=== PATIENT | male | born 1950 | race Caucasian/White ===

== ENCOUNTER 2017-07-21 07:38 | Outpatient (CLI) | payer OTHER ==
[~2017-07-21] VITALS: Ht 193 cm; Wt 117.0 kg
[~2017-07-21 07:38] MED LIST: AMLO-183 PO; LEVO150T7 PO; MULT1TAB28 PO; NEXI40CA PO; SILD50TA GT; SIMV20TA2 PO; TRAV04OPD OU
[2017-07-21] MEDS ORDERED: NS 1,000 ML IV ONE (08:00)
--- NOTE | 2017-07-21 09:29 | ROOR ---
Patient Name: Giovanni Mejia Procedure Date: 07/21/2017 9:02 AM Date of : 1950 Age: 67 Room: [facility] Gender: Male Note Status: Finalized Procedure: Total Colonoscopy to Cecum Indications: Screening for colorectal malignant neoplasm Providers: Alvaro Cobb MD Referring MD: EFREN FERNANDEZ JR, MD Requesting Provider: Medicines: Monitored Anesthesia Care Complications: No immediate complications. Procedure: Pre-Anesthesia Assessment: - The heart rate, respiratory rate, oxygen saturations, blood pressure, adequacy of pulmonary ventilation, and response to care were monitored throughout the procedure. The Colonoscope was introduced through the anus and advanced to the cecum, identified by appendiceal orifice and ileocecal valve. The colonoscopy was performed without difficulty. The patient tolerated the procedure well. The quality of the bowel preparation was excellent. Findings: The perianal and digital rectal examinations were normal. Non-bleeding internal hemorrhoids were found during retroflexion. The hemorrhoids were small and Grade I (internal hemorrhoids that do not prolapse). Scattered small-mouthed diverticula were found in the recto-sigmoid colon, sigmoid colon and descending colon. The exam was otherwise without abnormality on direct and retroflexion views. Impression: - Non-bleeding internal hemorrhoids. - Diverticulosis in the recto-sigmoid colon, in the sigmoid colon and in the descending colon. - The examination was otherwise normal on direct and retroflexion views. - No specimens collected. - The exam was otherwise normal to the cecum. Recommendation: - Patient has a contact number available for emergencies. The signs and symptoms of potential delayed complications were discussed with the patient. Return to normal activities tomorrow. Written discharge instructions were provided to the patient. - High fiber diet. - Discharge patient to home. - Continue present medications. - Repeat colonoscopy in 10 years for screening purposes. - Return to referring physician. - The findings and recommendations were discussed with the patient's family. Alvaro Cobb MD Alvaro Cobb MD 07/21/2017 9:28:53 AM This report has been signed electronically. Number of Addenda: 0 Note Initiated On: 07/21/2017 9:02 AM Estimated Blood Loss: Estimated blood loss: none.
[2017-07-21 09:55] VITALS: BP 149/90
== END 2017-07-21 09:56 | disposition home or self-care (01) ==
LOC: M OPP 07:38
PROVIDERS: ATTEND Internal Medicine Gastroenterology
DX: Z12.11 Encounter for screening for malignant neoplasm of colon (principal); K64.0 First degree hemorrhoids; K57.30 Diverticulosis of large intestine without perforation or abscess without bleeding; I10 Essential (primary) hypertension; E03.9 Hypothyroidism, unspecified; E78.00 Pure hypercholesterolemia, unspecified; E05.00 Thyrotoxicosis with diffuse goiter without thyrotoxic crisis or storm; K21.9 Gastro-esophageal reflux disease without esophagitis; Z92.3 Personal history of irradiation; Z87.891 Personal history of nicotine dependence; Z79.899 Other long term (current) drug therapy; Z88.6 Allergy status to analgesic agent

== ENCOUNTER → 2018-01-29 | Outpatient (REF) | payer OTHER ==
[2018-01-31 00:07] LABS: Lyme Disease IgG/IgM Antibodie <0.91 ISR (0.00-0.90); Lyme Disease IgM Ab Quantitati <0.80 index (0.00-0.79)
== END ==
LOC: M LAB REF 12:06
DX: M54.5 Low back pain (principal); M25.551 Pain in right hip; Z11.59 Encounter for screening for other viral diseases
CPT/HCPCS: 86617

== ENCOUNTER → 2020-03-24 | Outpatient (REF) | payer OTHER ==
[~2020-03-24] MED LIST changes: -SIMV20TA2 PO; +SIMV20TA22 PO
[2020-03-25 15:09] LABS: Lyme Disease IgG/IgM Antibodie <0.91 ISR (0.00-0.90); Lyme Disease IgM Ab Quantitati <0.80 index (0.00-0.79)
== END ==
LOC: M LAB REF 12:26
PROVIDERS: ATTEND Registered Nurse
DX: M25.50 Pain in unspecified joint (principal)

== ENCOUNTER → 2021-03-12 | Outpatient (CLI) | payer OTHER ==
--- NOTE | 2021-03-12 13:36 | REP ---
INDICATION: EROSIVE OSTEOARTHRITIS. COMPARISON: None. TECHNIQUE: Four views FINDINGS: The joint spaces are symmetric and relatively well maintained. There is no evidence of marginal osteophytosis or marginal erosions. There is no evidence of periarticular osteopenia. There is no evidence of acute fracture or destructive osseous lesion. IMPRESSION: Negative hand. <Electronically signed by Zan Moise > 03/12/21 [id number]
--- NOTE | 2021-03-13 09:39 | REP ---
INDICATION: EROSIVE OSTEOARTHRITIS COMPARISON: None. TECHNIQUE: AP, lateral, bilateral oblique views right wrist. FINDINGS: The carpal bones, surrounding osseous structures, soft tissues, and joint spaces are essentially normal/age-appropriate. There is no evidence for acute fracture or dislocation. No significant arthritic changes are appreciated. No periarticular calcifications or chondrocalcinosis. No subcutaneous emphysema or radiodense foreign body. IMPRESSION: Normal wrist series. No acute fracture or dislocation. <Electronically signed by Sushil Sandhu > 03/13/21 [id number]
[2021-03-14 12:09] LABS: ANTINUCLEAR ANTIBODIES DIRECT Negative (Negative)
== END ==
LOC: M WUC 13:14
PROVIDERS: ATTEND Internal Medicine
DX: M15.9 Polyosteoarthritis, unspecified (principal); M35.3 Polymyalgia rheumatica

== ENCOUNTER 2022-04-06 14:47 | Emergency (ER) | payer OTHER ==
[~2022-04-06] VITALS: Ht 193 cm; Wt 120.9 kg
[~2022-04-06 14:47] MED LIST changes: -SILD50TA GT; +SILD50TA PO
[2022-04-06] MEDS ORDERED: METF500T13 PO (14:55)
[2022-04-06] MEDS ORDERED: NS 250 ML IV ONE (15:20)
[2022-04-06] MEDS ORDERED: ROSU10TA6 PO (15:35)
[2022-04-06] MEDS ORDERED: LOTR5CAP2 PO (15:35)
[2022-04-06 15:36] LABS: BASO % 0.3 % (0.0-1.0); EOS % 0.2 % (0.0-3.0); HEMATOCRIT 41.8 % (42.0-52.0); HEMOGLOBIN 13.9 g/dl (13.5-17.5); LYMPH # 1.2 10^3/uL (1.5-5.0); LYMPH % 9.6 % (24.0-44.0); MEAN CORPUSCULAR HEMOGLOBIN 32.3 pg (27.0-33.0); MEAN CORPUSCULAR HGB CONC 33.3 g/dl (32.0-36.5); MEAN CORPUSCULAR VOLUME 97.2 fl (80.0-96.0); MONO # 0.6 10^3/uL (0.0-0.8); MONO % 4.6 % (2.0-8.0); NEUTROPHILS # 10.4 10^3/uL (1.5-8.5); NEUTROPHILS % 84.9 % (36.0-66.0); PLATELET COUNT, AUTOMATED 328 10^3/uL (150-450); WHITE BLOOD COUNT 12.2 10^3/uL (4.0-10.0)
[2022-04-06] MEDS: METOPROLOL 5 MG/5 ML VIAL IV PRN ×2 (15:40→15:46)
[2022-04-06 15:52] LABS: INR 0.88; PROTHROMBIN TIME 12.3 SECONDS (12.7-14.5)
[2022-04-06 15:53] LABS: PARTIAL THROMBOPLASTIN TIME 25.2 SECONDS (25.9-37.0)
[2022-04-06 16:02] LABS: CK-MB VALUE MASS 2.7 NG/ML (<3.6); MB/CK RELATIVE INDEX 1.16 (< OR =4)
[2022-04-06] MEDS ORDERED: METOPROLOL TART 25 MG TABLET PO ONE (16:05)
[2022-04-06] MEDS ORDERED: ISOVUE-370 76% 100ML VIAL As Ordered ONE (16:14)
[2022-04-06 16:21] LABS: ALBUMIN 4.1 GM/DL (3.2-5.2); BILIRUBIN,DIRECT 0.1 MG/DL (0.0-0.2); BILIRUBIN,TOTAL 0.4 MG/DL (0.2-1.0); CALCIUM LEVEL 9.1 MG/DL (8.8-10.2); CREATININE FOR GFR 1.49 MG/DL (0.70-1.30); FREE T4 1.08 NG/DL (0.76-1.46); GLOMERULAR FILTRATION RATE 49.5 (>42); POTASSIUM SERUM 4.7 MEQ/L (3.5-5.1); THYROID STIMULATING HORMONE 2.78 uIU/ML (0.358-3.740)
[2022-04-06 16:23] LABS: RSV AMPLIFICATION NEGATIVE (NEGATIVE)
[2022-04-06] MEDS ORDERED: MULTTAB61 PO (17:37)
[2022-04-06] MEDS ORDERED: HOME MED LIST COMPLETE! XX SCH (17:40)
[2022-04-06 17:41] LABS: CK-MB VALUE MASS 2.4 NG/ML (<3.6); MB/CK RELATIVE INDEX 1.12 (< OR =4)
[2022-04-06] MEDS ORDERED: atenoloL 25 MG TAB PO ONE (18:00)
[2022-04-06] MEDS ORDERED: APIXABAN 5 MG TAB (ELIQUIS) PO ONE (18:00)
[2022-04-06] MEDS ORDERED: ATEN25TA PO (18:02)
[2022-04-06] MEDS ORDERED: ELIQ5TAB PO (18:03)
[2022-04-06 18:15] VITALS: BP 122/62
== END 2022-04-06 18:17 | disposition home or self-care (01) ==
LOC: M ED 14:47
DX: I48.91 Unspecified atrial fibrillation (principal); R06.00 Dyspnea, unspecified; R94.31 Abnormal electrocardiogram [ECG] [EKG]; E11.9 Type 2 diabetes mellitus without complications; I10 Essential (primary) hypertension; F17.200 Nicotine dependence, unspecified, uncomplicated; F10.10 Alcohol abuse, uncomplicated; Z88.6 Allergy status to analgesic agent; Z79.4 Long term (current) use of insulin; Z79.899 Other long term (current) drug therapy
CPT/HCPCS: 70450; 71045; 71275; 80047; 80048; 80076; 82550; 82553; 83690; 83880; 84439; 84443; 84484; 85025; 85610; 85730; 86850; 86900; 86901; 87631; 93005; 93041; 94760; 96361; 96374; 99285; Q9967

== ENCOUNTER 2022-07-19 11:23 | Emergency (ER) | payer OTHER, MEDICARE ==
[~2022-07-19] VITALS: Ht 193 cm; Wt 114.4 kg
[~2022-07-19 11:23] MED LIST changes: +ATEN25TA PO; +ELIQ5TAB PO; +LOTR5CAP2 PO; +METF500T13 PO; +MULTTAB61 PO; +ROSU10TA6 PO
[2022-07-19] MEDS ORDERED: METOPROLOL 5 MG/5 ML VIAL IV SCH (11:55)
[2022-07-19] MEDS ORDERED: METO1TAB87 (11:58)
[2022-07-19] MEDS ORDERED: NS 500 ML IV ONE (12:10)
[2022-07-19 12:17] LABS: BASO % 0.4 % (0.0-1.0); EOS # 0.1 10^3/uL (0.0-0.5); EOS % 1.1 % (0.0-3.0); HEMATOCRIT 45.6 % (42.0-52.0); HEMOGLOBIN 15.4 g/dl (13.5-17.5); LYMPH # 1.6 10^3/uL (1.5-5.0); LYMPH % 17.7 % (24.0-44.0); MEAN CORPUSCULAR HEMOGLOBIN 33.1 pg (27.0-33.0); MEAN CORPUSCULAR HGB CONC 33.8 g/dl (32.0-36.5); MEAN CORPUSCULAR VOLUME 98.1 fl (80.0-96.0); MONO # 0.7 10^3/uL (0.0-0.8); MONO % 7.2 % (2.0-8.0); NEUTROPHILS # 6.8 10^3/uL (1.5-8.5); NEUTROPHILS % 73.2 % (36.0-66.0); PLATELET COUNT, AUTOMATED 320 10^3/uL (150-450); RED BLOOD COUNT 4.65 10^6/uL (4.30-6.10); WHITE BLOOD COUNT 9.3 10^3/uL (4.0-10.0)
[2022-07-19 12:43] LABS: INR 0.91; PROTHROMBIN TIME 12.6 SECONDS (12.7-14.5)
[2022-07-19 12:44] LABS: PARTIAL THROMBOPLASTIN TIME 24.4 SECONDS (25.9-37.0)
[2022-07-19 12:48] LABS: CK-MB VALUE MASS 1.3 NG/ML (<3.6); MB/CK RELATIVE INDEX 1.03 (< OR =4)
[2022-07-19 12:56] LABS: RSV AMPLIFICATION NEGATIVE (NEGATIVE)
[2022-07-19 12:59] LABS: ALBUMIN 3.9 GM/DL (3.2-5.2); ALT/SGPT 35 U/L (12-78); BILIRUBIN,DIRECT 0.1 MG/DL (0.0-0.2); BILIRUBIN,TOTAL 0.4 MG/DL (0.2-1.0); BLOOD UREA NITROGEN 20 MG/DL (7-18); CARBON DIOXIDE LEVEL 29 MEQ/L (21-32); CHLORIDE LEVEL 105 MEQ/L (98-107); CREATININE FOR GFR 1.16 MG/DL (0.70-1.30); FREE T4 1.02 NG/DL (0.76-1.46); GLOMERULAR FILTRATION RATE > 60.0 (>42); GLUCOSE, FASTING 171 MG/DL (70-100); LIPASE 58 U/L (73-393); NT-PRO BNP 892 PG/ML (<125); POTASSIUM SERUM 4.7 MEQ/L (3.5-5.1); SODIUM LEVEL 140 MEQ/L (136-145)
[2022-07-19 14:08] LABS: CK-MB VALUE MASS < 1.0 NG/ML (<3.6); CPK CREATINE PHOSPHOKINASE 110 U/L (39-308); MB/CK RELATIVE INDEX 0.91 (< OR =4)
[2022-07-19] MEDS ORDERED: METOPROLOL TART 25 MG TABLET PO ONE (14:15)
[2022-07-19 15:45] VITALS: BP 127/69
== END 2022-07-19 16:12 | disposition home or self-care (01) ==
LOC: M ED 11:23
DX: I48.0 Paroxysmal atrial fibrillation (principal); E11.9 Type 2 diabetes mellitus without complications; I10 Essential (primary) hypertension; Z86.79 Personal history of other diseases of the circulatory system; E78.00 Pure hypercholesterolemia, unspecified; F10.10 Alcohol abuse, uncomplicated; Z88.6 Allergy status to analgesic agent; Z79.4 Long term (current) use of insulin; Z79.899 Other long term (current) drug therapy

== ENCOUNTER → 2022-12-19 | Outpatient (CLI) | payer OTHER ==
[~2022-12-19] MED LIST changes: +ISOVUE-370 76% 100ML VIAL As Ordered ONE; +METO1TAB87
== END ==
LOC: M RAD 12:24
PROVIDERS: ATTEND Internal Medicine
DX: R31.0 Gross hematuria (principal); R91.8 Other nonspecific abnormal finding of lung field

== ENCOUNTER → 2022-12-25 | Outpatient (REF) | payer OTHER ==
[~2022-12-25] MED LIST changes: -ISOVUE-370 76% 100ML VIAL As Ordered ONE
== END ==
LOC: M SMT 16:51
PROVIDERS: ATTEND Urology
DX: R31.0 Gross hematuria (principal)

== ENCOUNTER → 2023-03-24 | Outpatient (REF) | payer OTHER ==
[2023-03-24 13:17] LABS: APPEARANCE, URINE CLEAR (CLEAR); BACTERIA, URINE AUTO NEGATIVE (NEGATIVE); BILIRUBIN, URINE AUTO NEGATIVE (NEGATIVE); BLOOD, URINE BLOOD NEGATIVE (NEGATIVE); COLOR, URINE YELLOW (YELLOW); GLUCOSE, URINE (UA) AUTO NEGATIVE (NEGATIVE); KETONE, URINE AUTO NEGATIVE (NEGATIVE); LEUKOCYTE ESTERASE, URINE AUTO NEGATIVE (NEGATIVE); NITRITE, URINE AUTO NEGATIVE (NEGATIVE); PROTEIN, URINE AUTO NEGATIVE (NEGATIVE); RBC, URINE AUTO 1 /HPF (0-3); SPECIFIC GRAVITY URINE AUTO 1.009 (1.002-1.035); SQUAMOUS EPITHELIAL CELL UR AU 0 /HPF (0-6); UROBILINOGEN, URINE AUTO 0.2 mg/dL (0.0-2.0); WBC, URINE AUTO 0 /HPF (0-3)
== END ==
LOC: M SMT 12:32
PROVIDERS: ATTEND Urology
DX: R31.0 Gross hematuria (principal)

== ENCOUNTER → 2023-03-25 | Outpatient (CLI) | payer OTHER | LOC: M PLAIMG 09:50 | PROVIDERS: ATTEND Internal Medicine | DX: J18.9 Pneumonia, unspecified organism (principal) ==

== ENCOUNTER → 2023-09-24 | Outpatient (REF) | payer OTHER ==
[2023-09-24 18:01] LABS: AMORPHOUS SEDIMENT SMALL (NEGATIVE); APPEARANCE, URINE TURBID (CLEAR); BACTERIA, URINE AUTO NEGATIVE (NEGATIVE); BILIRUBIN, URINE AUTO NEGATIVE (NEGATIVE); BLOOD, URINE BLOOD NEGATIVE (NEGATIVE); CALCIUM OXALATE CRYSTALS SMALL; COLOR, URINE AMBER (YELLOW); GLUCOSE, URINE (UA) AUTO NEGATIVE (NEGATIVE); KETONE, URINE AUTO NEGATIVE (NEGATIVE); LEUKOCYTE ESTERASE, URINE AUTO NEGATIVE (NEGATIVE); NITRITE, URINE AUTO NEGATIVE (NEGATIVE); PROTEIN, URINE AUTO NEGATIVE (NEGATIVE); RBC, URINE AUTO 0 /HPF (0-3); SPECIFIC GRAVITY URINE AUTO 1.023 (1.002-1.035); SQUAMOUS EPITHELIAL CELL UR AU 0 /HPF (0-6); UROBILINOGEN, URINE AUTO 0.2 mg/dL (0.0-2.0); WBC, URINE AUTO 0 /HPF (0-3)
== END ==
LOC: M SMT 17:01
PROVIDERS: ATTEND Urology
DX: N40.0 Benign prostatic hyperplasia without lower urinary tract symptoms (principal)

== ENCOUNTER 2024-07-19 07:16 | Day surgery (SDC) | payer OTHER ==
[~2024-07-19] VITALS: Ht 193 cm; Wt 118.4 kg
[~2024-07-19 07:16] MED LIST changes: +LR 1,000 ML IV SCH; +MIDAZOLAM INJ 2MG/2ML VIAL As Ordered ONE; +MILK175C6 PO; +OMEP10CASR PO; -ROSU10TA6 PO; +ROSU10TA61 PO; +VITA500T10 PO; +fentaNYL 100 MCG/2 ML INJECTION As Ordered ONE
[2024-07-19] MEDS: ATROPINE SULFATE 1% OPHTH SOLN 2ML BTL OS SCH (07:49)
[2024-07-19] MEDS: TETRACAINE 0.5% OPHTH SOLN 4ML OS SCH (07:49)
[2024-07-19] MEDS: PHENYLEPHRINE 2.5% OPHTH SOL 2ML OS SCH (07:49)
[2024-07-19] MEDS: FLURBIPROFEN 0.03% OPHTH SOLN 2.5 ML OS SCH (07:49)
[2024-07-19] MEDS: LIDOCAINE 1% SDV 5ML VIAL As Ordered ONE (09:01)
[2024-07-19] MEDS: CEFUROXIME 1MG/0.1ML INTRACAMERAL INJ As Ordered ONE (09:01)
[2024-07-19 09:19] VITALS: BP 169/84; TEMP 97.4; O2SAT 96
== END 2024-07-19 09:35 | disposition home or self-care (01) ==
LOC: M SDC 07:16
PROVIDERS: ATTEND Ophthalmology
DX: E11.36 Type 2 diabetes mellitus with diabetic cataract (principal); H25.12 Age-related nuclear cataract, left eye; I48.91 Unspecified atrial fibrillation; I10 Essential (primary) hypertension; E03.9 Hypothyroidism, unspecified; E78.00 Pure hypercholesterolemia, unspecified; E05.00 Thyrotoxicosis with diffuse goiter without thyrotoxic crisis or storm; Z79.899 Other long term (current) drug therapy; Z79.01 Long term (current) use of anticoagulants; Z79.890 Hormone replacement therapy; Z85.828 Personal history of other malignant neoplasm of skin
CPT/HCPCS: 66984; J0697; J2250; J3010; V2632

== ENCOUNTER 2024-07-26 05:54 | Day surgery (SDC) | payer OTHER ==
[~2024-07-26] VITALS: Ht 193 cm; Wt 119.8 kg
[~2024-07-26 05:54] MED LIST changes: -LR 1,000 ML IV SCH; -MIDAZOLAM INJ 2MG/2ML VIAL As Ordered ONE; -fentaNYL 100 MCG/2 ML INJECTION As Ordered ONE
[2024-07-26] MEDS: FLURBIPROFEN 0.03% OPHTH SOLN 2.5 ML OD SCH (06:40)
[2024-07-26] MEDS: ATROPINE SULFATE 1% OPHTH SOLN 2ML BTL OD SCH (06:40)
[2024-07-26] MEDS: PHENYLEPHRINE 2.5% OPHTH SOL 2ML OD SCH (06:40)
[2024-07-26] MEDS: TETRACAINE 0.5% OPHTH SOLN 4ML OD SCH (06:40)
[2024-07-26] MEDS ORDERED: GLUCOSE 4 GM CHEW PO PRN (06:50)
[2024-07-26] MEDS ORDERED: GLUCAGON INJ 1MG VIAL SC PRN (06:50)
[2024-07-26] MEDS ORDERED: DEXTROSE 50% 50ML SYRINGE IV PRN (06:50)
[2024-07-26] MEDS: INSULIN LISPRO (NovoLOG) PER UNIT SC PRN (06:59)
[2024-07-26] MEDS ORDERED: LR 1,000 ML IV SCH (07:00)
[2024-07-26] MEDS ORDERED: propofoL 200 MG/20 ML VIAL As Ordered ONE (07:16)
[2024-07-26] MEDS ORDERED: MIDAZOLAM INJ 2MG/2ML VIAL As Ordered ONE (07:16)
[2024-07-26] MEDS ORDERED: fentaNYL 100 MCG/2 ML INJECTION As Ordered ONE (07:16)
[2024-07-26] MEDS: LIDOCAINE 1% SDV 5ML VIAL As Ordered ONE (07:26)
[2024-07-26] MEDS: CEFUROXIME 1MG/0.1ML INTRACAMERAL INJ As Ordered ONE (07:29)
[2024-07-26 07:47] VITALS: BP 147/82; TEMP 97.8; O2SAT 98
== END 2024-07-26 08:07 | disposition home or self-care (01) ==
LOC: M SDC 05:54
PROVIDERS: ATTEND Ophthalmology
DX: H25.11 Age-related nuclear cataract, right eye (principal); I48.91 Unspecified atrial fibrillation; Z79.01 Long term (current) use of anticoagulants; I10 Essential (primary) hypertension; E78.5 Hyperlipidemia, unspecified; E11.9 Type 2 diabetes mellitus without complications; E03.9 Hypothyroidism, unspecified; K21.9 Gastro-esophageal reflux disease without esophagitis; Z88.8 Allergy status to other drugs, medicaments and biological substances; Z79.84 Long term (current) use of oral hypoglycemic drugs; Z79.899 Other long term (current) drug therapy
CPT/HCPCS: 66984; J0697; J1815; J2250; J3010; V2632

== ENCOUNTER 2024-12-06 11:22 | Emergency (ER) | payer OTHER ==
[~2024-12-06] VITALS: Ht 193 cm; Wt 119.7 kg
[2024-12-06 11:24] VITALS: BP 164/92; TEMP 97.7; O2SAT 97
== END 2024-12-06 17:10 | disposition home or self-care (01) ==
LOC: M ED 11:22
DX: S09.90XA Unspecified injury of head, initial encounter (principal); W01.198A Fall on same level from slipping, tripping and stumbling with subsequent striking against other object, initial encounter; M47.812 Spondylosis without myelopathy or radiculopathy, cervical region; Y92.009 Unspecified place in unspecified non-institutional (private) residence as the place of occurrence of the external cause; Y93.89 Activity, other specified; Y99.9 Unspecified external cause status; Z79.01 Long term (current) use of anticoagulants; Z88.6 Allergy status to analgesic agent; Z79.899 Other long term (current) drug therapy; Z79.4 Long term (current) use of insulin